=== PATIENT | male | born 1960 | race Caucasian/White ===

== ENCOUNTER 2019-05-02 10:10 | Inpatient (IN) | payer OTHER ==
[2019-05-02] MEDS ORDERED: CEFAZOLIN 2 GM/50 ML (PMX) 50 ML IVPB (11:00)
[2019-05-02] MEDS ORDERED: LACTATED RINGER'S 1,000 ML IV (11:00)
[2019-05-02] MEDS ORDERED: SOD CHLORIDE 0.9% 1,000 ML IV (11:30)
[2019-05-02] MEDS: 1/2 NS + KCL 20 MEQ 1,000 ML IV ×3 (12:17→22:17)
[2019-05-02] MEDS ORDERED: DESFLURANE 15 MIN (12:24)
[2019-05-02] MEDS ORDERED: ROCURONIUM 50 MG INJ (12:24)
[2019-05-02] MEDS ORDERED: SUCCINYLCHOLINE CHLORIDE 100 MG/5 ML SYG IV (12:24)
[2019-05-02] MEDS ORDERED: LIDOCAINE 2% (SDV) 5 ML INJ (12:24)
[2019-05-02] MEDS ORDERED: PROPOFOL 20 ML (12:24)
[2019-05-02] MEDS ORDERED: MIDAZOLAM 1 MG/ML 2 ML INJ (12:25)
[2019-05-02] MEDS ORDERED: DIPHENHYDRAMINE 50 MG INJ IV (12:30)
[2019-05-02] MEDS ORDERED: traMADol 50 MG TAB PO (12:30)
[2019-05-02] MEDS ORDERED: AL HYDROX/MG HYDROX/SIMETH 30 ML CUP PO (12:30)
[2019-05-02] MEDS ORDERED: HYDROmorphONE 0.5 MG/0.5 ML SYG IV (12:30)
[2019-05-02] MEDS ORDERED: BISACODYL 10 MG SUPP PR (12:30)
[2019-05-02] MEDS ORDERED: ACETAMINOPHEN 325 MG TAB PO (12:30)
[2019-05-02] MEDS ORDERED: NALOXONE (0.4 MG/ML) INJ IV (12:30)
[2019-05-02] MEDS ORDERED: ONDANSETRON 4 MG INJ IV ×2 (12:30→14:30)
[2019-05-02] MEDS ORDERED: DIPHENHYDRAMINE 25 MG CAP PO (12:30)
[2019-05-02] MEDS ORDERED: CARISOPRODOL 350 MG TAB PO (12:30)
[2019-05-02] MEDS ORDERED: ONDANSETRON 4 MG INJ (12:41)
[2019-05-02] MEDS ORDERED: DEXAMETHASONE 4 MG/ML 5 ML INJ (12:41)
[2019-05-02] MEDS ORDERED: CEFAZOLIN 1 GM INJ (12:41)
[2019-05-02] MEDS: CA CHLORIDE 10% 10 ML SYRINGE (13:30)
[2019-05-02] MEDS: BUPIVACAINE 0.5%/EPI (SDV) 30 ML INJ (13:30)
[2019-05-02] MEDS: HEPARIN 1000 UNITS/ML 10 ML INJ (13:31)
[2019-05-02] MEDS: POLYMYXIN/BACITRACIN 1L IRRIG (13:31)
[2019-05-02] MEDS: GELATIN SIZE 100 SPONGE (13:31)
[2019-05-02] MEDS: THROMBIN 5000 UNIT (RECOTHROM) VIAL (13:32)
[2019-05-02] MEDS ORDERED: hydrALAzine 20 MG INJ IV (14:30)
[2019-05-02] MEDS ORDERED: HYDROmorphONE 1 MG/5 ML IV SYRINGE IV ×3 (14:30)
[2019-05-02] MEDS ORDERED: DEXTROSE 50% 50 ML SYRINGE IV ×2 (14:30)
[2019-05-02] MEDS ORDERED: GLUCAGON 1 MG INJ IM (14:30)
[2019-05-02] MEDS ORDERED: GLUCOSE GEL 15 GRAM TUBE PO ×2 (14:30)
[2019-05-02] MEDS ORDERED: GLUCOSE GEL 15 GRAM TUBE BUCCAL (14:30)
[2019-05-02] MEDS ORDERED: LABETALOL HCL 20MG INJ IV (14:30)
[2019-05-02] MEDS ORDERED: SUGAMMADEX SODIUM 200 MG/2 ML VIAL IV (14:34)
[2019-05-02] MEDS ORDERED: FENTAnyl 50 MCG/ML VIAL IV (15:00)
[2019-05-02] MEDS: CEFAZOLIN 1 GM/50 ML (PMX) 50 ML IVPB ×2 (15:21→23:08)
[2019-05-02] MEDS: FENTAnyl 50 MCG/ML VIAL IV ×2 (15:26→15:44)
[2019-05-02] MEDS: INSULIN ASPART [NOVOLOG] 3 ML PEN SC ×3 (17:55→21:00)
[2019-05-02] MEDS: metFORMIN (XR) 500 MG TAB PO (17:55)
[2019-05-02] MEDS: DOCUSATE SODIUM 100 MG CAP PO (21:53)
[2019-05-02] MEDS: CEPASTAT LOZENGE MT (23:11)
[2019-05-03] MEDS: 1/2 NS + KCL 20 MEQ 1,000 ML IV (04:50)
[2019-05-03 05:06] LABS: ADD MAN DIFF? NO
[2019-05-03 05:10] LABS: BASOPHILS % 0.2 % (0.0-2.0); EOSINOPHILS % 0.1 % (0.0-7.0); HEMATOCRIT 41.7 % (42.0-52.0); HEMOGLOBIN 13.9 g/dl (14.0-18.0); LYMPHOCYTES % 7.7 % (15.0-51.0); MEAN CORPUSCULAR HEMOGLOBIN 30.5 pg (29.0-33.0); MEAN CORPUSCULAR HGB CONC 33.3 g/dl (32.0-37.0); MEAN CORPUSCULAR VOLUME 91.6 fl (82.0-101.0); MEAN PLATELET VOLUME 10.5 fl (7.4-10.4); MONOCYTE # 0.9 10^3/ul (0.3-0.9); MONOCYTES % 7.2 % (0.0-11.0); NEUTROPHILS % 84.4 % (39.0-77.0); PLATELET COUNT 279 10^3/UL (140-415); RED BLOOD COUNT 4.55 10^6/ul (4.70-6.10); RED CELL DISTRIBUTION WIDTH 12.6 % (11.5-14.5)
[2019-05-03 05:32] LABS: CHOL/HDL RATIO 5.5 RATIO; HDL CHOLESTEROL 38 mg/dl (30-78); LDL CHOLESTEROL,CALCULATED 136 mg/dl; TRIGLYCERIDES 176 mg/dl (0-149)
[2019-05-03 05:32] LABS: CHOLESTEROL 209 mg/dl (100-200)
[2019-05-03 05:34] LABS: ANION GAP 8 (5-13); BLOOD UREA NITROGEN 35 mg/dl (7-20); CALCIUM 9.4 mg/dl (8.4-10.2); CARBON DIOXIDE 24 mmol/L (21-31); CHLORIDE 105 mmol/L (97-110); CREATININE 1.43 mg/dl (0.61-1.24); Estimated GFR 50 mL/min (>60); GLUCOSE 114 mg/dl (70-220); MAGNESIUM 1.9 mg/dl (1.7-2.5); POTASSIUM 4.7 mmol/L (3.5-5.1); SODIUM 137 mmol/L (135-144)
[2019-05-03] MEDS: CEFAZOLIN 1 GM/50 ML (PMX) 50 ML IVPB (06:01)
[2019-05-03] MEDS: INSULIN ASPART [NOVOLOG] 3 ML PEN SC ×2 (07:50→11:40)
[2019-05-03 08:03] LABS: HEMOGLOBIN A1C 5.6 % (0-5.9)
[2019-05-03] MEDS: MULTIVITAMINS THERAPEUTIC TAB PO (08:56)
[2019-05-03] MEDS: metFORMIN (XR) 500 MG TAB PO (08:56)
[2019-05-03] MEDS: DOCUSATE SODIUM 100 MG CAP PO (08:56)
[2019-05-03] MEDS: ASCORBIC ACID 500 MG TAB PO (08:56)
[2019-05-03] MEDS: FLUTICASONE 0.05% 16 GM NAS SPRAY NASAL (08:56)
[2019-05-03] MEDS: LOSARTAN 50 MG TAB PO (08:58)
== END 2019-05-03 15:20 | disposition home or self-care (01) | DRG 520 ==
LOC: REC 10:10 → MS1 16:25
PROVIDERS: Specialist
PROC: 01NB0ZZ Release Lumbar Nerve, Open Approach (ICD-10-PCS; principal; 2019-05-02 12:00)
PROC: 00BY0ZZ Excision of Lumbar Spinal Cord, Open Approach (ICD-10-PCS; 2019-05-02 12:00)
PROC: 01NR0ZZ Release Sacral Nerve, Open Approach (ICD-10-PCS; 2019-05-02 12:00)
DX: M48.062 Spinal stenosis, lumbar region with neurogenic claudication (principal); G96.19 Other disorders of meninges, not elsewhere classified; D17.79 Benign lipomatous neoplasm of other sites; E11.9 Type 2 diabetes mellitus without complications; I10 Essential (primary) hypertension; E78.5 Hyperlipidemia, unspecified
CPT/HCPCS: 72020; 80048; 80061; 82962; 83036; 83735; 85025; 86999; 97116; 97161; 97530